=== PATIENT | female | born 1950 | race Caucasian/White ===

== ENCOUNTER 2016-10-07 15:54 | Day surgery (SDC) | payer MEDICARE, OTHER ==
[~2016-10-07] VITALS: Ht 170.2 cm; Wt 86.0 kg
[2016-10-07] VITALS (14 sets, daily range): BP systolic 101–132; BP diastolic 50–69; PULSE 68–86; RESP 12–18; Ht 170.2 cm; Wt 86.0 kg
[2016-10-07] MEDS ORDERED: LEVO100T87 PO (16:54)
[2016-10-07] MEDS ORDERED: IBUP800T25 PO (16:54)
[2016-10-07] MEDS ORDERED: AMLO-147 PO (16:54)
[2016-10-07] MEDS ORDERED: ROPIVACAINE 0.5 % 30 ML VIAL ONE (17:58)
[2016-10-07] MEDS ORDERED: MIDAZOLAM 1 MG/ML 2 ML INJ ONE (17:58)
--- NOTE | 2016-10-07 18:15 | HPN ---
Date/Time of Note Date/Time of Note DATE: 10/07/16 TIME: 18:15 Interval H&P Admission Note Pt. seen H&P reviewed: No system changes ANGELIQUE JONES MD October 07, 2016 18:15
[2016-10-07] MEDS ORDERED: ROCURONIUM 50 MG INJ ONE (18:30)
[2016-10-07] MEDS ORDERED: PROPOFOL 20 ML ONE (18:30)
[2016-10-07] MEDS ORDERED: morphine 10 MG INJ IV PRN (18:30)
[2016-10-07] MEDS ORDERED: FENTAnyl 50 MCG/ML VIAL ONE (18:30)
[2016-10-07] MEDS ORDERED: morphine 2 MG INJ IV PRN (18:30)
[2016-10-07] MEDS ORDERED: PHENYLephrine (100 MCG/ML) 5ML SYG ONE (18:42)
[2016-10-07] MEDS ORDERED: EPHEDrine SULFATE 50 MG/5 ML SYG ONE (18:47)
[2016-10-07] MEDS ORDERED: CEFAZOLIN 1 GM INJ ONE (18:48)
[2016-10-07] MEDS ORDERED: LIDOCAINE 2% (SDV) 5 ML INJ ONE (18:48)
[2016-10-07] MEDS ORDERED: ACETAMINOPHEN 1000MG/100ML IV 100 ML ONE (18:50)
[2016-10-07] MEDS ORDERED: DEXAMETHASONE 4 MG/ML 1 ML INJ ONE (19:14)
[2016-10-07] MEDS ORDERED: ONDANSETRON 4 MG INJ ONE ×2 (19:14→21:28)
[2016-10-07] MEDS ORDERED: POLYMYXIN/BACITRACIN 1L IRRIG IRR ONE (19:16)
[2016-10-07] MEDS ORDERED: HYDROmorphONE 2 MG/ML SYG ONE (20:28)
[2016-10-07] MEDS ORDERED: BACITRACIN/POLYMYXIN 28.35 GM OINT TOP ONE (21:16)
[2016-10-07] MEDS ORDERED: BUPIVACAINE 0.5% (SDV) 30 ML INJ ONE (21:16)
[2016-10-07] MEDS ORDERED: NEOSTIGMINE 3 MG/3 ML SYRINGE ONE (21:34)
[2016-10-07] MEDS ORDERED: GLYCOPYRROLATE 0.4 MG INJ ONE (21:34)
[2016-10-07] MEDS ORDERED: hydrALAzine 20 MG INJ IV PRN (22:30)
[2016-10-07] MEDS ORDERED: PROCHLORPERAZINE 10 MG INJ IV PRN (22:30)
[2016-10-07] MEDS ORDERED: oxyCODONE 5 MG TAB PO PRN ×2 (22:30)
[2016-10-07] MEDS ORDERED: DIPHENHYDRAMINE 50 MG INJ IV PRN (22:30)
[2016-10-07] MEDS ORDERED: METOCLOPRAMIDE 10 MG INJ IV PRN (22:30)
[2016-10-07] MEDS ORDERED: HYDROmorphONE (0.2 MG/ML) 10ML SYG IV PRN (22:30)
[2016-10-07] MEDS ORDERED: MEPERIDINE 25 MG INJ IV PRN (22:30)
[2016-10-07] MEDS ORDERED: FENTAnyl 50 MCG/ML VIAL IV PRN (22:30)
[2016-10-07] MEDS ORDERED: LABETALOL HCL 20MG INJ IV PRN (22:30)
--- NOTE | 2016-10-07 22:49 | OPR ---
Date/Time of Note Date/Time of Note DATE: 10/07/16 TIME: 22:27 Operative Report Procedure Date: October 07, 2016 Preoperative Diagnosis 1. right ankle Maisonneuve fracture dislocation 2. Right ankle syndesmotic disruption 3. Right ankle medial malleolus fracture Postoperative Diagnosis 1. right ankle Maisonneuve fracture dislocation 2. Right ankle syndesmotic disruption 3. Right ankle posterior and medial malleolus fracture 4. Right ankle anterior inferior tibiofibular ligament rupture 5. right ankle deep and superficial deltoid ligament rupture. Operation Performed 1. right ankle arthroscopy with extensive debridement 2. Right ankle arthroscopy with loose body removal 3. Right ankle open reduction internal fixation of Maisonneuve/syndesmotic dislocation 4. Right ankle excision of medial malleolus avulsion fracture 5. Right ankle anterior inferior tibiofibular ligament repair 6. Right ankle deep and superficial deltoid repair Surgeon: ANGELIQUE JONES MD Anesthesia: general, other (Popliteal block with local saphenous block) Anesthesiologist: JOSHUA ROMERO MD Tourniquet Time: 90 minutes at 250 mmHg Estimated Blood Loss: 0 - 10 ml's Complications: None Pt Condition Post Procedure: stable Disposition: PACU Indications Patient is a 66-year-old female who sustained a Maisonneuve fracture dislocation with a medial malleolus fracture. Given the significant widening of the medial clear space and likely deltoid injury patient was indicated for surgery. Procedure Description Patient was met in the preoperative holding area and and the correct operative extremity was confirmed and marked with the patient and confirming consent. Patient was then given preoperative regional anesthesia and then brought back in the operative theater and given preoperative antibiotics. Patient was then positioned in the typical ankle arthroscopy position with the leg in the thigh canales with a nonsterile tourniquet placed on the operative extremity and all bony prominences were well-padded. Patient was then prepped and draped in the normal sterile fashion and a timeout was taken. All parties in the room agreed as the correct patient, extremity and procedure. The superficial peroneal nerve had been marked out prior to surgery and the ankle was then distracted to approximately 20 pounds of force. Typical anterior medial, anterior lateral and posterior lateral portals were made with care to avoid any injury to the neurovascular structures. Arthroscope was then brought into the ankle and extensive hemorrhagic synovitis was seen in the ankle joint. The shaver was brought into the ankle joint and the scar tissue was debrided from the medial lateral and posterior gutter. It was found that there was evidence of chondromalacia on the talar dome. There is also found to be a posterior malleolus fracture that several loose bodies were removed from the posterior gutter that had emanated from the posterior malleolus fracture. These loose bodies measure approximately 1.3 cm in total. The anterior inferior tibiofibular ligament was identified and noted to be ruptured on the anterior lateral aspect of the ankle and the medial malleolus fracture fragment was identified and the deep and superficial deltoid were noticed to be ruptured. After extensive debridement of the ankle joint the ankle joint was irrigated thoroughly and the wounds were closed with 4-0 black nylon in a vertical mattress fashion. The ankle was taken out of the distractor and then reprepped and draped out of the thigh canales and all gloves and instruments were changed. Esmarch was brought to 250 mmHg and incision was made over the lateral malleolus. The anterior inferior tibiofibular ligament rupture was identified at this area. The syndesmotic disruption is identified as well and a 2 hole Arthrex titanium plate was placed at the syndesmosis approximately 1.5 cm from the ankle joint. Initially a 3.5 centimeter screw was placed across all 4 cortices while the ankle joint was held in reduction with a large [place] clamp. An Arthrex titanium tightrope was then placed across the proximal hole across all 4 cortices. At this point the ankle joint to be well reduced in the AP lateral and oblique position however there is extensive talar tilt seen on the medial side which was due to the deltoid rupture. This wound was irrigated thoroughly and the AITFL was then repaired with a 2-0 Vicryl. The lateral wound was then irrigated thoroughly and closed in layers with 2-0 Vicryl followed by 3-0 Monocryl and 3-0 nylon in a vertical running mattress fashion. Attention was then turned to the medial aspect of the ankle and incision was brought down over the medial malleolus. The hematoma was identified at the medial malleolus fracture site however given the small size of the fracture fragment it was determined that it would be best to remove this fracture fragment and excise it. The superficial and deep deltoid were identified to be torn at the midportion and the wound was irrigated thoroughly and then to 2.4 x 8.5 mm Arthrex mini bio composite suture tacks were then placed into the medial malleolus and then using the attached 2-0 FiberWire the deep and superficial deltoid was repaired. The ankle was then shown to have improved symmetry with improvement in the talar tilt on AP lateral and oblique x-rays. The wound irrigated thoroughly and closed in layers with 2-0 Vicryl followed by 3-0 Monocryl and 3-0 nylon in a running vertical mattress fashion. The wounds were then dressed with Xeroform, triple antibiotic ointment and 5 ABDs 5 Webrils and placed in a well-padded bulky short leg splint that was well- padded at all bone prominences. All sponge and needle counts were correct. Patient was in the PACU in stable condition. Patient had warm toes and capillary refill is brisk. We will patient to be nonweightbearing for at least the next 8 weeks. ANGELIQUE JONES MD October 07, 2016 22:39
[2016-10-07] MEDS ORDERED: CEFAZOLIN 1 GM INJ IM ONE (23:30)
[2016-10-07] MEDS ORDERED: OXYCODONE/ACETAMINOPHEN (10/325) TAB PO PRN (23:30)
[2016-10-08] VITALS (10 sets, daily range): BP systolic 104–120; BP diastolic 56–59; PULSE 69–83; RESP 14–18
--- NOTE | 2016-10-08 00:27 | HP ---
Date/Time of Note Date/Time of Note DATE: 10/08/16 TIME: 00:26 Assessment/Plan VTE Prophylaxis VTE Prophylaxis Intervention: SCD's (On the left lower extremity, right lower extremity has surgical cast/boot on.) Lines/Catheters IV C[facility]ter Type [facility]from [facility]): Peripheral IV Assessment/Plan Chief Complaint/Hosp Course This is a 66-year-old female being admitted to the [facility] for: #1 hypoxia: Likely secondary to anesthesia medications and narcotics that she got during and after surgery. Patient does not appear in any respiratory distress. She is maintaining good oxygenation of 97-98% on 2 L of nasal cannula. Heart rate is fluctuating between 60s to mid 70s. She denies any pleuritic pain. At this time I feel that a PE is less likely. I feel like this most likely is secondary to her anesthesia medications and pain medications. At the current time we will continue to monitor the patient with continuous pulse oximetry. Will DC her IV narcotic medications as well as PACU medications. If her clinical condition does change/worsen will consider a CTA of the chest, though again at this time I do not feel that her current clinical picture reflects that of her having a PE. Will wean supplemental oxygen in the a.m. and see how the patient's oxygen tolerates this. Will order chest x-ray in the morning. Encourage incentive spirometry. #2 right ankle ORIF: Patient is postop day 0. Continue current management as per her surgeon. #3 hypothyroidism: Continue levothyroxine #4 hypertension: Norvasc #5 DVT and GI prophylaxis: SCDs, acid marina Problems: HPI/ROS Admit Date/Time Admit Date/Time 10/08/16 Hx of Present Illness Chief complaint: Somnolence This is a 66-year-old female status post right ankle ORIF who is being admitted to the inpatient unit secondary to somnolence and hypoxia. Patient is status post right ankle ORIF and did well in the recovery room the patient was seen to be somnolent. She is easily arousable. The nurses did note that the patient did desat down to 86% on room air. Patient denied any chest pain or shortness of breath. Her respirations are noted to be around 7-8. She was not tachycardic. Her surgeon Dr. Sosa, was concerned regarding the patient's desat and he wanted to admit the patient overnight for observation. At the current time and examination the patient appears to be sleeping very comfortably. She is easily arousable. Her respirations are around 8-10 bpm. However she is satting 97% on 2 L nasal cannula. Otherwise her vital signs are stable and she is not tachycardic. She denies any chest pain or shortness of breath on deep inspiration. Allergies: NKDA medications: See MAR ROS Const: Negative for fever, chills, weight gain or weight loss, fatigue, or diaphoresis Eyes : No pain discharge or redness or change in visual acuity ENT: No pain, sore throat, congestion, congestion, dysphagia or discharge Respiratory: No shortness of breath, cough, sputum, wheezing, or pleuritic pain Cardiovascular: No chest pain, palpitation, PND, or edema GI : no change in appetite, abdominal pain, nausea, vomiting, diarrhea, constipation, or change in the color his stool Genitourinary: No dysuria, hematuria, flank pain , discharge or CVA tenderness Musculoskeletal: Mild pain at surgery site of the ankle. Skin: No rash, bruising or hives Neuro: No headache, dizziness, syncope, seizure, focal weakness Endocrine: No polyuria, polydipsia, temperature intolerance Psych: No hallucination, depression, anxiety or suicidal ideation PMH/Family/Social Past Medical History Hypertension, hypothyroidism Past Surgical History Right ankle ORIF 2, bilateral breast lumpectomy Family History Significant Family History: no pertinent family hx Social History Alcohol Use: none Smoking Status: Never smoker Drug Use: none Exam/Review of Systems Vital Signs Vitals Vital Signs Date Time Temp Pulse Resp B/P Pulse Ox O2 Delivery O2 Flow Rate FiO2 10/07/16 22:59 99.3 70 14 114/52 92 Room Air 10/07/16 22:39 2.0 Intake and Output 10/07/16 10/07/16 10/08/16 15:00 23:00 07:00 Intake Total 59297 ml Output Total 10 ml Balance 73879 ml Exam Exam General: Patient is sleeping comfortably in bed, she is easily arousable and answers questions appropriately. She appears comfortable HEENT: Atraumatic, normocephalic. The pupils are equal, round and reactive. Extraocular motor are intact Neck: Supple with full range of motion. No rigidity or meningismus Chest: Nontender Lungs: Clear to auscultation bilaterally no crackles rales or wheezing, no signs of respiratory distress or increased work of breathing. Heart: Normal S1-S2, Regular rhythm and rate. Abdomen: Soft , nontender, nondistended , bowel sounds are present. No guarding no rebound tenderness , No masses or organomegaly. No costovertebral temporal angle mass Extremities: Right lower extremity is in a cast status post surgery. Neurologic: Patient is somnolent however she is easily arousable. She answers questions appropriately. She is alert and oriented 3. Medications Medications Current Medications Oxycodone/ Acetaminophen (Percocet (5/ 325)) 2 tab Q4H PRN PO PAIN LEVEL 4-6; Start 10/07/16 at 18:30 Morphine Sulfate (morphine) 5 mg Q4H PRN IV PAIN; Start 10/07/16 at 18:30 Oxycodone HCl (Roxicodone) 5 mg ONCE PRN PO PAIN LEVEL 1-5; Start 10/07/16 at 22:30; Stop 10/08/16 at 02:30 Oxycodone HCl (Roxicodone) 10 mg ONCE PRN PO PAIN LEVEL 6-10; Start 10/07/16 at 22:30; Stop 10/08/16 at 02:30 Oxycodone/ Acetaminophen 1 tab 1 tab Q4H PRN PO PAIN; Start 10/07/16 at 23:30 Cefazolin Sodium (Ancef 1 Gm/50 ml (Pmx)) 50 ml @ 100 mls/hr Q8 IVPB ; Start at 22:00; Status UNV Amlodipine Besylate (Norvasc) 10 mg DAILY PO ; Start 10/08/16 at 09:00; Status UNV CRUZITO DUPREE October 08, 2016 00:27
[2016-10-08] MEDS ORDERED: NACL 0.9% 3 ML SYG IV SCH (00:30)
[2016-10-08 05:14] LABS: ADD SCAN DIFF NO
[2016-10-08 05:23] LABS: ABNORMAL IP MESSAGE 1; HEMOGLOBIN 12.4 g/dl (12.0-16.0); LYMPHOCYTES # 0.6 10^3/ul (0.8-2.9); LYMPHOCYTES % 8.9 % (15.0-51.0); MEAN CORPUSCULAR HEMOGLOBIN 31.4 pg (29.0-33.0); MEAN CORPUSCULAR HGB CONC 32.6 g/dl (32.0-37.0); MEAN CORPUSCULAR VOLUME 96.2 fl (82.0-101.0); MONOCYTE # 0.1 10^3/ul (0.3-0.9); MONOCYTES % 1.4 % (0.0-11.0); NEUTROPHIL # 5.7 10^3/ul (1.6-7.5); NEUTROPHILS % 89.4 % (39.0-77.0); PLATELET COUNT 256 10^3/UL (140-415); RED BLOOD COUNT 3.95 10^6/ul (4.20-5.40); RED CELL DISTRIBUTION WIDTH 10.5 % (11.5-14.5); WHITE BLOOD COUNT 6.4 10^3/ul (4.8-10.8)
[2016-10-08 05:34] LABS: CALCIUM 8.2 mg/dl (8.4-10.2); CREATININE 0.78 mg/dl (0.44-1.00); POTASSIUM 4.8 mmol/L (3.5-5.1)
[2016-10-08] MEDS: CEFAZOLIN 1 GM/50 ML (PMX) 50 ML IVPB SCH ×2 (05:35→14:44)
[2016-10-08] MEDS: OXYCODONE/ACETAMINOPHEN (5/325) TAB PO PRN ×3 (05:38→14:45)
[2016-10-08] MEDS ORDERED: LEVOTHYROXINE 100 MCG TAB PO SCH (07:00)
--- NOTE | 2016-10-08 07:58 | RADRPT ---
PROCEDURE: XA right ankle CLINICAL INDICATION: ORIF TECHNIQUE: 8 images were obtained intraoperatively during an ORIF procedure. COMPARISON: None available FINDINGS: 8 images were obtained intraoperatively for localization during an ORIF procedure. A short compressi on plate was placed lateral to the distal fibula and a syndesmotic screw was placed. The procedure was performed by Dr. Sosa. Images were obtained for localization intraoperatively. 58.9 seconds of fluoroscopy time was utilized for the procedure. IMPRESSION: 8 Xray images obtained intraoperatively for localization during a right ankle ORIF procedure. Physician Krys Date Time Electronically viewed and signed by Physician Krys on 10/08/2016 07:58 /
[2016-10-08] MEDS ORDERED: AMLODIPINE 10 MG TAB PO SCH (09:00)
--- NOTE | 2016-10-08 10:04 | RADRPT ---
PROCEDURE: XR Chest. CLINICAL INDICATION: Hypoxia TECHNIQUE: Chest AP portable COMPARISON: None available FINDINGS: The mediastinal structures are unremarkable. There is calcification of the thoracic aorta (consiste nt with atherosclerosis). The heart is normal in size and configuration. The pulmonary vascularity is normal. The lung almeida are unremarkable. No consolidation is identified. The pleural spaces are unremarkable. The osseous structures are unremarkable. IMPRESSION: Calcification of the thoracic aorta (consistent with atherosclerosis). No evidence for active cardiopulmonary disease. RPTAT: HGDB .Olegario Balderas MD, Date Time Electronically viewed and signed by .Olegario Balderas MD, MD on 10/08/2016 10:03 .B/
--- NOTE | 2016-10-08 10:46 | PN ---
Date/Time of Note Date/Time of Note DATE: 10/08/16 TIME: 10:34 Assessment/Plan VTE Prophylaxis VTE Prophylaxis Intervention: SCD's Lines/Catheters IV Catheter Type (from Nrs): Peripheral IV Urinary Cath still in place: No Assessment/Plan Chief Complaint/Hosp Course Assessment 1. Acute ankle fracture status post repair by Dr. Sosa 2. Postop hypoxemia likely secondary to alveolar hypoventilation from oversedation 3. History of hypothyroidism Plan 1. Continue pain control 2. Orthopedic recommendations 3. Physical therapy per Ortho 4. May benefit from acute rehab eval Problems: Subjective 24 Hr Interval Summary Free Text/Dictation Patient underwent surgical repair of ankle fracture yesterday still has significant pain In her ankle feels somewhat disoriented this morning Exam/Review of Systems Vital Signs Vitals Vital Signs Date Time Temp Pulse Resp B/P Pulse Ox O2 Delivery O2 Flow Rate FiO2 10/08/16 07:50 97.4 75 14 114/59 95 10/08/16 07:39 Nasal Cannula 10/08/16 05:30 2.0 Intake and Output 10/07/16 10/07/16 10/08/16 15:00 23:00 07:00 Intake Total 98399 ml 550 ml Output Total 10 ml Balance 67635 ml 550 ml Exam GENERAL: Well-nourished well-developed lady comfortable at rest VITAL SIGNS: per chart NECK: Supple. No JVD or lymphadenopathy. CARDIAC EXAM: S1, S2. No added sounds or murmurs. CHEST: clear bilaterally, No added sounds, rales or wheezes ABDOMEN: Soft, nontender. No guarding or rebound. EXTREMITIES: No cyanosis, clubbing right ankle in cast NEUROLOGIC: Generalized weakness. No focal deficits. Results Result Diagram: 10/08/16 0450 10/08/16 0450 Results 24 hrs Laboratory Tests Test 10/08/16 04:50 White Blood Count 6.4 Red Blood Count 3.95 L Hemoglobin 12.4 Hematocrit 38.0 Mean Corpuscular Volume 96.2 Mean Corpuscular Hemoglobin 31.4 Mean Corpuscular Hemoglobin Concent 32.6 Red Cell Distribution Width 10.5 L Platelet Count 256 Mean Platelet Volume 11.0 H Neutrophils % 89.4 H Lymphocytes % 8.9 L Monocytes % 1.4 Eosinophils % 0.0 Basophils % 0.0 Nucleated Red Blood Cells % 0.0 Neutrophils # 5.7 Lymphocytes # 0.6 L Monocytes # 0.1 L Eosinophils # 0.0 Basophils # 0.0 Nucleated Red Blood Cells # 0.0 Sodium Level 136 Potassium Level 4.8 Chloride Level 105 Carbon Dioxide Level 25 Anion Gap 11 Blood Urea Nitrogen 17 Creatinine 0.78 Glucose Level 150 Calcium Level 8.2 L Medications Medications Current Medications Oxycodone/ Acetaminophen (Percocet (5/ 325)) 2 tab Q4H PRN PO PAIN LEVEL 4-6 Last administered on 10/08/16 05:38; Admin Dose 2 TAB; Start 10/07/16 at 18:30 Oxycodone/ Acetaminophen 1 tab 1 tab Q4H PRN PO PAIN; Start 10/07/16 at 23:30 Cefazolin Sodium (Ancef 1 Gm/50 ml (Pmx)) 50 ml @ 100 mls/hr Q8 IVPB Last administered on 10/08/16 05:35; Admin Dose 100 MLS/HR; Start 10/08/16 at 06:00 Amlodipine Besylate (Norvasc) 10 mg DAILY PO Last administered on 10/08/16 08: 29; Admin Dose 10 MG; Start 10/08/16 at 09:00 ROBIN STOVALL MD, [facility] October 08, 2016 10:46
--- NOTE | 2016-10-08 16:39 | PN ---
Date/Time of Note Date/Time of Note DATE: 10/08/16 TIME: 16:37 Assessment/Plan Lines/Catheters IV Catheter Type (from Nrsg): Peripheral IV Cabrera in Place (from Nrsg): No Assessment/Plan Assessment/Plan POD#1 s/p R ankle arthroscopy with ORIF of Maissounve fracture with AITFL and Deltoid repair - NWB to the RLE - Admitted to Hospitalist service post op for desat - SCDs, teds, ASA for dvt prophx - dc home when cleared by hospitalist Jennifer Jones MD Subjective 24 Hr Interval Summary Doing well pain controlled. Exam/Review of Systems Vital Signs Vitals Vital Signs Date Time Temp Pulse Resp B/P Pulse Ox O2 Delivery O2 Flow Rate FiO2 10/08/16 07:50 97.4 75 14 114/59 95 10/08/16 07:39 Nasal Cannula 10/08/16 05:30 2.0 Intake and Output 10/07/16 10/07/16 10/08/16 15:00 23:00 07:00 Intake Total 61866 ml 550 ml Output Total 10 ml Balance 42271 ml 550 ml Exam Constitutional: alert, oriented, well developed Musculoskeletal: other (rle/ splint intact, toes wiggle, silt to the exposed toes, cr brisk) Results Result Diagram: 10/08/16 0450 10/08/16 0450 ANGELIQUE JONES MD October 08, 2016 16:39
== END 2016-10-08 17:20 | disposition home or self-care (01) ==
LOC: SDS 15:54 → MS1 10-08 00:45 → SDS 10-08 17:20
PROVIDERS: ATTEND Orthopaedic Surgery
DX: S82.861D Displaced Maisonneuve's fracture of right leg, subsequent encounter for closed fracture with routine healing (principal); X58.XXXD Exposure to other specified factors, subsequent encounter; I10 Essential (primary) hypertension; E03.9 Hypothyroidism, unspecified
CPT/HCPCS: 27766; 71010; 73610; 80048; 82306; 85025; 97163; G0378; J0131; J0690; J1100; J1170; J2250; J2370; J2405; J2710; J2795; J3010

== ENCOUNTER 2016-10-10 11:54 | Inpatient (IN) | payer MEDICARE, OTHER ==
[~2016-10-10] VITALS: Ht 170.2 cm; Wt 92.7 kg
[~2016-10-10 11:54] MED LIST: AMLO-147 PO; IBUP800T25 PO; LEVO100T87 PO
[2016-10-10] MEDS ORDERED: SOD CHLORIDE 0.9% 1,000 ML IV STA ×2 (12:00→12:11)
[2016-10-10] MEDS ORDERED: IBUP400T22 PO (12:46)
[2016-10-10] MEDS ORDERED: OXYC-209 PO (12:47)
[2016-10-10 13:01] LABS: ADD SCAN DIFF NO
[2016-10-10 13:02] LABS: BASOPHILS % 0.3 % (0.0-2.0); EOSINOPHILS # 0.1 10^3/ul (0.0-0.5); EOSINOPHILS % 0.9 % (0.0-7.0); HEMATOCRIT 36.8 % (37.0-47.0); LYMPHOCYTES % 31.8 % (15.0-51.0); MEAN CORPUSCULAR HEMOGLOBIN 31.8 pg (29.0-33.0); MEAN CORPUSCULAR HGB CONC 32.6 g/dl (32.0-37.0); MEAN CORPUSCULAR VOLUME 97.6 fl (82.0-101.0); MEAN PLATELET VOLUME 10.6 fl (7.4-10.4); MONOCYTE # 0.5 10^3/ul (0.3-0.9); MONOCYTES % 7.3 % (0.0-11.0); NEUTROPHIL # 3.8 10^3/ul (1.6-7.5); NEUTROPHILS % 59.5 % (39.0-77.0); PLATELET COUNT 252 10^3/UL (140-415); RED BLOOD COUNT 3.77 10^6/ul (4.20-5.40); RED CELL DISTRIBUTION WIDTH 10.9 % (11.5-14.5); WHITE BLOOD COUNT 6.3 10^3/ul (4.8-10.8)
--- NOTE | 2016-10-10 13:23 | ERA ---
ER Documentation Chief Complaint Date/Time DATE: 10/10/16 TIME: 13:20 Chief Complaint BIBA FOR NON RADIATING CHEST PAIN,SOB HPI 66-year-old woman brought in by EMS from home for chest discomfort to the anterior chest which has been nonradiating and nonexertional associated with shallow breathing and shortness of breath. Patient recently underwent right ankle ORIF and had to be admitted for excessive somnolence and hypoxia. 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 She denies cough, no fevers or chills, no dysuria, no abdominal pain, no headache or blurry vision. Patient was transported here by EMS without further complications. ROS All systems reviewed and are negative except as per history of present illness. Medications Home Meds Reported Medications Oxycodone HCl/Acetaminophen (Percocet 10-325 mg Tablet) 1 Each Tablet, 1 EACH PO Q4 Y for PAIN, TAB 10/10/16 Ibuprofen* (Motrin*) 400 Mg Tab, 400 MG PO Q6H Y for PAIN, TAB 10/10/16 Levothyroxine Sodium* (Levothyroxine Sodium*) 100 Mcg Tablet, 100 MCG PO BEFORE BREAKFAST, #30 TAB 10/07/16 Amlodipine Besylate* (Amlodipine Besylate*) 10 Mg Tablet, 10 MG PO DAILY, #30 TAB 10/07/16 Discontinued Reported Medications Ibuprofen* (Ibuprofen*) 800 Mg Tab, 800 MG PO TID for PAIN AND/OR INFLAMMATION, TAB 10/07/16 Allergies Allergies: Coded Allergies: No Known Allergy (Unverified , 10/10/16) PMhx/Soc Hypothyroidism, hypertension, recent right ORIF History of Surgery: Yes (CHOLECYSTECTOMY,KATHERINE LUMPECTOMY ,RT ANKLE SURGERY) Anesthesia Reaction: No Hx Neurological Disorder: No Hx Respiratory Disorders: No Hx Cardiac Disorders: Yes (HTN) Hx Psychiatric Problems: No Hx Miscellaneous Medical Probl: Yes (see PT note) Hx Alcohol Use: No Hx Substance Use: No Hx Tobacco Use: No Smoking Status: Never smoker FmHx Family History: No diabetes Physical Exam Vitals Vital Signs Date Time Temp Pulse Resp B/P Pulse Ox O2 Delivery O2 Flow Rate FiO2 10/10/16 15:02 74 17 141/62 100 Room Air 10/10/16 13:18 Nasal Cannula 2 10/10/16 13:15 70 16 124/63 97 Nasal Cannula 10/10/16 12:05 98.9 82 18 139/75 98 Physical Exam GENERAL: Well-developed, well-nourished, well-hydrated, in no apparent distress , looks nontoxic in appearance HEENT: Moist mucous membranes, pink conjunctiva, no cervical spine tenderness or step-off deformities, no goiter, no jaundice or icterus, extraocular movements intact without pain. No submandibular induration, and no pharyngeal erythema NEURO: Alert and oriented 3, cranial nerves II through XII intact bilaterally, pupils equal round reactive to light, no focal deficits or facial asymmetry, sensation intact distally Strength 5/5 in upper and lower extremities bilaterally CARDIAC: Regular rate and rhythm, no murmurs rubs or gallops LUNGS: Clear bilaterally no wheezing crackles or stridor ABDOMEN: Soft nontender, no guarding, no rigidity, no rebound, no psoas sign no obturator sign. Normoactive bowel sounds SKIN: Warm and dry to touch, no abrasions, contusions, or hematomas, no lacerations, no ecchymosis, no target lesions, and without ulcers EXTREMITIES: No clubbing cyanosis or edema, right lower extremity is placed in a long-leg immobilizer boot, distal pulses equal bilateral PSYCH: Normal affect without agitation or irritability Result Diagram: 10/10/16 1230 10/10/16 1230 Results 24 hrs Laboratory Tests Test 10/10/16 12:30 10/10/16 14:55 White Blood Count 6.310^3/ul Red Blood Count 3.7710^6/ul Hemoglobin 12.0g/dl Hematocrit 36.8% Mean Corpuscular Volume 97.6fl Mean Corpuscular Hemoglobin 31.8pg Mean Corpuscular Hemoglobin Concent 32.6g/dl Red Cell Distribution Width 10.9% Platelet Count 86843^3/UL Mean Platelet Volume 10.6fl Neutrophils % 59.5% Lymphocytes % 31.8% Monocytes % 7.3% Eosinophils % 0.9% Basophils % 0.3% Nucleated Red Blood Cells % 0.0/100WBC Neutrophils # 3.810^3/ul Lymphocytes # 2.010^3/ul Monocytes # 0.510^3/ul Eosinophils # 0.110^3/ul Basophils # 0.010^3/ul Nucleated Red Blood Cells # 0.010^3/ul Sodium Level 137mmol/L Potassium Level 4.1mmol/L Chloride Level 103mmol/L Carbon Dioxide Level 31mmol/L Anion Gap 7 Blood Urea Nitrogen 17mg/dl Creatinine 0.89mg/dl Glucose Level 101mg/dl Calcium Level 8.5mg/dl Total Bilirubin 0.3mg/dl Direct Bilirubin 0.00mg/dl Indirect Bilirubin 0.3mg/dl Aspartate Amino Transf (AST/SGOT) 210IU/L Alanine Aminotransferase (ALT/SGPT) 237IU/L Alkaline Phosphatase 124IU/L Troponin I < 0.012ng/ml Total Protein 5.9g/dl Albumin 3.0g/dl Globulin 2.90g/dl Albumin/Globulin Ratio 1.03 Lipase 64U/L Urine Color LT. YELLOW Urine Clarity CLEAR Urine pH 6.0 Urine Specific [place] 1.010 Urine Ketones NEGATIVE Urine Nitrite NEGATIVE Urine Bilirubin NEGATIVE Urine Urobilinogen 0.2 E.U./dL Urine Leukocyte Esterase NEGATIVE Urine Microscopic RBC 0-2/HPF Urine Microscopic WBC NONE SEEN/HPF Urine Epithelial Cells FEW Urine Hemoglobin TRACE Urine Glucose NEGATIVE% Urine Total Protein NEGATIVE Current Medications Medications (Trade) Dose Ordered Sig/Dianne Route PRN Reason Start Time Stop Time Status Last Admin Dose Admin Sodium Chloride 1,000 ml @ 1,000 mls/hr Q1H STAT IV 10/10/16 12:00 10/10/16 12:06 DC Sodium Chloride (NS) 1,000 ml @ 1,000 mls/hr Q1H STAT IV 10/10/16 12:11 10/10/16 13:10 DC 10/10/16 12:26 IV Flush 10 ml 10 ml STK-MED ONCE .ROUTE 10/10/16 13:30 10/10/16 13:31 DC Sodium Chloride 100 ml @ ud STK-MED ONCE .ROUTE 10/10/16 13:30 10/10/16 13:31 DC Iohexol (Omnipaque) 100 ml @ ud STK-MED ONCE .ROUTE 10/10/16 13:30 10/10/16 13:31 DC Iohexol (Omnipaque 350mg/ ml) 50 ml STK-MED ONCE .ROUTE 10/10/16 13:30 10/10/16 13:31 DC Aspirin (Aspirin) 324 mg ONCE ONCE PO 10/10/16 14:30 10/10/16 14:31 DC Heparin Sodium (Porcine) 5000 unit 5,000 unit ONCE STAT IV 10/10/16 14:14 10/10/16 14:20 DC Heparin Sodium (Porcine) (Heparin 38689 Units/250 ml) 250 ml @ 0 mls/hr ONCE STAT IV 10/10/16 14:14 10/10/16 14:20 DC Procedures/MDM IV line was established patient was placed on monitor and storage bin tender rhythm strip revealed a sinus rhythm at about 70 bpm with upright P and T waves. Patient was afebrile. Oxygen saturation on room air was 98% and normal. EKG performed, read by me: 73 bpm, normal sinus rhythm, normal axis, no acute ST segment changes, narrow QRS complex, with good R-wave progression in precordial leads. I administered 2 L normal saline intravenously. CT angiogram of the chest was performed revealing bilateral subsegmental pulmonary emboli and micronodules as well. Please refer to radiologist dictation for full report. I administered aspirin 324 mg p.o. for cardioprotective measures as well as heparin bolus maximum dose followed by heparin drip to treat acute symptomatic bilateral pulmonary emboli. CBC was normal, electrolytes normal, liver function tests revealed mild transaminitis, troponin was negative. Critical Care: Time: 35 minutes, this was time separate from other procedures. Treatments/Evaluations: Close monitoring and treatment of unstable vital signs, cardiorespiratory, and neurologic status, while maintaining tight balance of fluid, respiratory, and cardiac interventions. Patient will be admitted to telemetry setting for continued medical management and cardiology consultation. Departure Diagnosis: Primary Impression: Bilateral pulmonary embolism Additional Impression: Ankle fracture, right Qualified Code: S82.891B - Ankle fracture, right, open type I or II, initial encounter Condition: Serious RICKY CASTILLO MD October 10, 2016 13:23
[2016-10-10 13:26] LABS: ALANINE AMINOTRANSFERASE 237 IU/L (13-69); ALBUMIN/GLOBULIN RATIO 1.03; ALKALINE PHOSPHATASE 124 IU/L (42-121); ANION GAP 7 (8-16); ASPARTATE AMINO TRANSFERASE 210 IU/L (15-46); BILIRUBIN,INDIRECT 0.3 mg/dl (0-1.1); BILIRUBIN,TOTAL 0.3 mg/dl (0.2-1.3); BLOOD UREA NITROGEN 17 mg/dl (7-20); CALCIUM 8.5 mg/dl (8.4-10.2); CARBON DIOXIDE 31 mmol/L (21-31); CHLORIDE 103 mmol/L (97-110); CREATININE 0.89 mg/dl (0.44-1.00); GLUCOSE 101 mg/dl (70-220); POTASSIUM 4.1 mmol/L (3.5-5.1); SODIUM 137 mmol/L (135-144); TOTAL PROTEIN 5.9 g/dl (6.1-8.1)
[2016-10-10] MEDS ORDERED: IOHEXOL 100 ML ONE (13:30)
[2016-10-10] MEDS ORDERED: IOHEXOL 350MG/ML 50 ML BTL ONE (13:30)
[2016-10-10] MEDS ORDERED: SOD CHLORIDE 0.9% 100 ML ONE (13:30)
[2016-10-10 13:39] LABS: TROPONIN-I < 0.012 ng/ml (0.00-0.12)
--- NOTE | 2016-10-10 13:46 | RADRPT ---
PROCEDURE: CT Brain without contrast. CLINICAL INDICATION: Neurologic deficit TECHNIQUE: A CT of the brain was performed on multidetector high-resolution CT scanner utilizing a xial sections from the skull base through the vertex without contrast. One or more of the following dose reduction techniques were used: Automated exposure control, Adjustment of the mA and/or kV acc ording to patient size, and/or use of iterative reconstruction technique. DOSE: CTDI = 44 mGy and the DLP = 630 mGy-cm. COMPARISON: None available FINDINGS: No acute intracranial hemorrhage, significant mass effect or midline shift. The tipton-white different iation is grossly preserved. The ventricles are normal in size for age. No significant opacification of the visualized paranasal sinuses or mastoids. IMPRESSION: No acute intracranial findings. RPTAT: AA .Channing Ferrell MD, Date Time Electronically viewed and signed by .Channing Ferrell MD, on 10/10/2016 13:46 .T/
[2016-10-10] MEDS ORDERED: HEPARIN 25000 UNITS/250 ML 250 ML IV STA (14:14)
[2016-10-10] MEDS ORDERED: HEPARIN 1000 UNITS/ML 10 ML INJ IV STA (14:14)
--- NOTE | 2016-10-10 14:16 | RADRPT ---
PROCEDURE: CTA chest with contrast utilizing the pulmonary embolus protocol. CLINICAL INDICATION: Dyspnea. TECHNIQUE: CT angiography of the chest was performed after the uneventful intravenous administration of 120 cc of Omnipaque-350. Coronal and sagittal reformations were performed. 3-D/multiplanar reformations we re performed by the technologist and at an independent workstation. The total exam CTDI equals 49.29 , 17.54 and the total exam DLP equals 627.95 mGy-cm. One or more of the following dose reduction techniques were used: - Automated exposure control. - Adjustment of the mA and/or kV according to patient size. - Use of iterative reconstruction technique. COMPARISON: Chest x-ray dated 10/08/2016. FINDINGS: Pulmonary vasculature: There are emboli within the subsegmental branches of the right upper lobe and left lower lobe pulmon samson arteries, consistent with pulmonary emboli. The main pulmonary artery is normal in caliber and t here is no evidence of right heart strain. Lungs, pleura, airways, and thoracic inlet: There are small bilateral pleural effusions, left greater than right. There is interlobular septal t hickening at the lung bases. There are nonspecific ground-glass micronodules throughout both lungs. There is also a 4 mm solid nodule in the anterior right middle lobe. There is no pneumothorax. Th e tracheobronchial tree is patent and normal in course and caliber. Cardiovascular system and mediastinum: The heart is normal in size without pericardial thickening or effusion. There are atherosclerotic c hanges of the aorta, which is nonaneurysmal. Lymphatics: There is no axillary adenopathy. There is bilateral hilar adenopathy. There is no mediastinal adeno conner. Visualized upper abdomen: The left kidney is not identified in its normal anatomic location, and may be surgically absent. The gallbladder is surgically absent. The visualized upper abdomen is otherwise unremarkable. Musculoskeletal system: There are no concerning osseous lesions. There is mild to moderate multilevel degenerative spondylos is. IMPRESSION: 1. Positive for PE with emboli and the subsegmental branches of the right upper lobe and left lower lobe pulmonary arteries. 2. Nonspecific ground-glass micronodules scattered throughout both lungs, which may be infectious/i nflammatory in nature. Additional solid 4 mm nodule in the right middle lobe. Follow-up chest CT in 1 month is recommended. Interlobular septal thickening at both lung bases, suggestive of mild pulmo nary edema. Small bilateral effusions, left greater than right. 3. Bilateral hilar adenopathy, which is nonspecific. Attention on follow-up is recommended. 4. Nonvisualization of the left kidney in its expected location, which may be surgically absent. CRITICAL RESULTS: These findings discussed with Dr. Berrios in the ED at 1413 hours on 10/10/2016. RPTAT: GG .Luis Ritchie MD, Date Time Electronically viewed and signed by .Luis Ritchie MD, on 10/10/2016 14:15 .P/
[2016-10-10] MEDS ORDERED: ASPIRIN 81 MG TAB PO ONE (14:30)
[2016-10-10 15:38] LABS: ADD UMIC YES; URINE BILIRUBIN (Dip) NEGATIVE (NEGATIVE); URINE BLOOD (Dip) TRACE (NEGATIVE); URINE COLOR LT. YELLOW (YELLOW); URINE GLUCOSE (Dip) NEGATIVE (NEGATIVE); URINE KETONES (Dip) NEGATIVE (NEGATIVE); URINE LEUKOCYTE ESTERASE (Dip) NEGATIVE (NEGATIVE); URINE NITRITE (Dip) NEGATIVE (NEGATIVE); URINE TOTAL PROTEIN (Dip) NEGATIVE (NEGATIVE); URINE UROBILINOGEN (Dip) 0.2 E.U./dL (0.1-1.0)
[2016-10-10 15:45] LABS: URINE RBCS 0-2 /HPF (0)
--- NOTE | 2016-10-10 17:58 | HP ---
Date/Time of Note Date/Time of Note DATE: 10/10/16 TIME: 17:51 Assessment/Plan VTE Prophylaxis VTE Prophylaxis Intervention: other (Xarelto) Assessment/Plan Assessment/Plan 1. Bilateral pulmonary emboli: Start oral anticoagulation, supplemental oxygen therapy, pain control. These are provoked PE, and as such hypercoagulable workup is not indicated at this time 2. Recent ankle fracture status post repair by Dr. Sosa 3. Hypothyroidism: Continue home meds Further interventions per clinical course Prophylaxis with anticoagulation and PPI HPI/ROS Admit Date/Time Admit Date/Time October 10, 2016 Hx of Present Illness Presenting complaint: Shortness of breath History of presenting complaint: This is a 66-year-old female who was just discharged from this facility after she underwent open reduction and internal fixation of an ankle fracture. She is presenting today with chest pain or shortness of breath. Chest pain is said to be midsternal, and pleuritic in nature associated with breathing. She has no fevers or chills, she has no cough or sputum production. She has no wheezing. She has had no syncopal episodes, denies abdominal pain, nausea or vomiting. Denies black stools. ROS ROS: CONSTITUTIONAL: denies fever, chills, weight loss, weight gain HEENT: denies headaches, any vertigo, any sore throat or rhinorrhea. Eyes: No double or blurred vision or eye pain. GASTROINTESTINAL: The patient denies any nausea, vomiting, diarrhea or abdominal pain. GENITOURINARY: denies dysuria, frequency, urgency or hematuria. MUSCULOSKELETAL: also denies myalgias, arthralgias or edema. SKIN: denies rash or jaundice NEUROLOGIC: denies weakness, dizziness, focal neurological change or headache. PSYCHIATRIC: denies history of depression in the past, any suicidal ideation. substance abuse. ENDOCRINE: denies polyuria, polydipsia or hot or cold intolerance. HEMATOLOGIC: denies history of easy bruising, anemia or eczema. PMH/Family/Social Social History Smoking Status: Never smoker Exam/Review of Systems Vital Signs Vitals Vital Signs Date Time Temp Pulse Resp B/P Pulse Ox O2 Delivery O2 Flow Rate FiO2 10/10/16 15:02 74 17 141/62 100 Room Air 10/10/16 13:18 2 10/10/16 12:05 98.9 Exam Exam GENERAL: Patient is alert, oriented x 3, in no apparent distress; does not appear acutely or chronically ill. Patient is able to sit up unassisted.Patient makes good eye contact, is conversant, interactive, coherent. Patient appears calm and comfortable and is able to follow commands. HEENT: Oropharynx is clear. There is no carotid bruit, no masses. Patient's pupils are equal, round and reactive to light bilaterally. Extraocular motions are intact. There is no scleral icterus. There is no facial asymmetry. NECK: Supple. LUNGS: Clear to auscultation bilaterally with good air entry. No Wheezes or crackles. HEART: S1, S2. No murmur, gallops or rubs. Regular rate and rhythm. ABDOMEN: Soft, nontender. Normoactive bowel sounds. There are no stigmata of chronic liver disease. BACK: no costovertebral angle tenderness. GENITOURINARY: Deferred. EXTREMITIES: Right ankle in cast NEUROLOGIC: The patient has no lateralizing signs. Cranial nerves II-XII are intact. SKIN: Otherwise, unremarkable. Labs Result Diagram: 10/10/16 1230 10/10/16 1230 Procedures Procedures PROCEDURE: CTA chest with contrast utilizing the pulmonary embolus protocol. CLINICAL INDICATION: Dyspnea. TECHNIQUE: CT angiography of the chest was performed after the uneventful intravenous administration of 120 cc of Omnipaque-350. Coronal and sagittal reformations were performed. 3-D/multiplanar reformations were performed by the technologist and at an independent workstation. The total exam CTDI equals 49.29 , 17.54 and the total exam DLP equals 627.95 mGy-cm. One or more of the following dose reduction techniques were used: - Automated exposure control. - Adjustment of the mA and/or kV according to patient size. - Use of iterative reconstruction technique. COMPARISON: Chest x-ray dated 10/08/2016. FINDINGS: Pulmonary vasculature: There are emboli within the subsegmental branches of the right upper lobe and left lower lobe pulmonary arteries, consistent with pulmonary emboli. The main pulmonary artery is normal in caliber and there is no evidence of right heart strain. Lungs, pleura, airways, and thoracic inlet: There are small bilateral pleural effusions, left greater than right. There is interlobular septal thickening at the lung bases. There are nonspecific ground- glass micronodules throughout both lungs. There is also a 4 mm solid nodule in the anterior right middle lobe. There is no pneumothorax. The tracheobronchial tree is patent and normal in course and caliber. Cardiovascular system and mediastinum: The heart is normal in size without pericardial thickening or effusion. There are atherosclerotic changes of the aorta, which is nonaneurysmal. Lymphatics: There is no axillary adenopathy. There is bilateral hilar adenopathy. There is no mediastinal adenopathy. Visualized upper abdomen: The left kidney is not identified in its normal anatomic location, and may be surgically absent. The gallbladder is surgically absent. The visualized upper abdomen is otherwise unremarkable. Musculoskeletal system: There are no concerning osseous lesions. There is mild to moderate multilevel degenerative spondylosis. IMPRESSION: 1. Positive for PE with emboli and the subsegmental branches of the right upper lobe and left lower lobe pulmonary arteries. 2. Nonspecific ground-glass micronodules scattered throughout both lungs, which may be infectious/inflammatory in nature. Additional solid 4 mm nodule in the right middle lobe. Follow-up chest CT in 1 month is recommended. Interlobular septal thickening at both lung bases, suggestive of mild pulmonary edema. Small bilateral effusions, left greater than right. 3. Bilateral hilar adenopathy, which is nonspecific. Attention on follow-up is recommended. 4. Nonvisualization of the left kidney in its expected location, which may be surgically absent. CRITICAL RESULTS: These findings discussed with Dr. Castillo in the ED at 1413 hours on 10/10/2016. RPTAT: GG .Luis Ritchie MD, MD Date Time Electronically viewed and signed by .Luis Ritchie MD, MD on 10/10/2016 14:15 .P/ CC: RICKY CASTILLO MD, BOLATITO M. October 10, 2016 17:58
[2016-10-10] MEDS ORDERED: morphine 2 MG INJ IV PRN (18:30)
[2016-10-10] MEDS: ONDANSETRON 4 MG INJ IV PRN (18:55)
[2016-10-10 19:00] VITALS: Ht 170.2 cm; Wt 92.7 kg
[2016-10-10 19:30] VITALS: BP 133/65; PULSE 65; RESP 18
[2016-10-10] MEDS: RIVAROXABAN 15 MG TABLET PO SCH (20:10)
[2016-10-10 20:13] VITALS: BP 121/74; RESP 20
[2016-10-10 20:31] VITALS: PULSE 65
[2016-10-10] MEDS: OXYCODONE/ACETAMINOPHEN (10/325) TAB PO PRN (21:49)
[2016-10-10 23:15] LABS: CREATINE KINASE 48 IU/L (23-200)
[2016-10-10 23:25] LABS: CK-MB 0.28 ng/ml (0.0-2.4)
[2016-10-10 23:29] LABS: TROPONIN-I < 0.012 ng/ml (0.00-0.12)
[2016-10-11] VITALS (10 sets, daily range): BP systolic 98–120; BP diastolic 53–70; PULSE 65–77; RESP 20
[2016-10-11] MEDS: OXYCODONE/ACETAMINOPHEN (10/325) TAB PO PRN ×3 (04:45→22:41)
[2016-10-11] MEDS: PANTOPRAZOLE (EC) 40 MG TAB PO SCH (05:21)
[2016-10-11] MEDS: LEVOTHYROXINE 100 MCG TAB PO SCH (07:14)
[2016-10-11] MEDS: AMLODIPINE 10 MG TAB PO SCH (08:52)
[2016-10-11] MEDS: RIVAROXABAN 15 MG TABLET PO SCH ×2 (08:52→17:23)
[2016-10-11] MEDS: POLYETHYLENE GLYCOL 17 GM PACKET PO SCH (08:52)
[2016-10-11 10:31] LABS: ADD SCAN DIFF NO
[2016-10-11 10:33] LABS: BASOPHILS % 0.4 % (0.0-2.0); EOSINOPHILS # 0.1 10^3/ul (0.0-0.5); EOSINOPHILS % 2.3 % (0.0-7.0); HEMATOCRIT 33.4 % (37.0-47.0); HEMOGLOBIN 11.1 g/dl (12.0-16.0); LYMPHOCYTES # 2.1 10^3/ul (0.8-2.9); LYMPHOCYTES % 40.1 % (15.0-51.0); MEAN CORPUSCULAR HEMOGLOBIN 32.1 pg (29.0-33.0); MEAN CORPUSCULAR HGB CONC 33.2 g/dl (32.0-37.0); MEAN CORPUSCULAR VOLUME 96.5 fl (82.0-101.0); MEAN PLATELET VOLUME 10.6 fl (7.4-10.4); MONOCYTE # 0.4 10^3/ul (0.3-0.9); MONOCYTES % 8.2 % (0.0-11.0); NEUTROPHIL # 2.6 10^3/ul (1.6-7.5); NEUTROPHILS % 48.8 % (39.0-77.0); PLATELET COUNT 265 10^3/UL (140-415); RED BLOOD COUNT 3.46 10^6/ul (4.20-5.40); RED CELL DISTRIBUTION WIDTH 10.8 % (11.5-14.5); WHITE BLOOD COUNT 5.3 10^3/ul (4.8-10.8)
[2016-10-11 10:52] LABS: CREATINE KINASE 38 IU/L (23-200)
[2016-10-11 10:57] LABS: CALCIUM 8.6 mg/dl (8.4-10.2); CREATININE 0.82 mg/dl (0.44-1.00); MAGNESIUM 1.6 mg/dl (1.7-2.5); POTASSIUM 3.9 mmol/L (3.5-5.1)
[2016-10-11 11:09] LABS: CK-MB < 0.22 ng/ml (0.0-2.4); TROPONIN-I < 0.012 ng/ml (0.00-0.12)
[2016-10-11 11:27] LABS: THYROID STIMULATING HORMONE 1.37 MIU/L (0.465-4.680)
--- NOTE | 2016-10-11 13:06 | DS ---
DATE OF ADMISSION: 10/10/2016 DATE OF DISCHARGE: 10/11/2016 ADMITTING DIAGNOSIS: Shortness of breath, rule out pulmonary emboli. DISCHARGE DIAGNOSIS: 1. Bilateral subsegmental lower lobe pulmonary emboli. 2. History of recent right ankle fracture. 3. History of hypothyroidism. PHYSICAL EXAMINATION: Ms. Andre's condition is quite stable. The patient denies any shortness of breath. Complains of very minimal chest discomfort upon deep breathing. Denies any hemoptysis, cough, wheezing, sputum production. Complains of very minimal right ankle pain. GENERAL: Elderly woman, awake, alert, cur rently in no distress. VITAL SIGNS: Temperature is 98.7 degrees Fahrenheit, respiratory rate is 18 per minute, blood press ure 106/56, O2 sat 98%, heart rate was 72. HEENT: Supple neck. No JVD, no lymphadenopathy, midline trachea, no thyromegaly. Pharynx clear, no neck bruits. Patient has good dentition. CHEST: Clear to auscultation. S1, S2 audible, no murmur. Regular rhythm. ABDOMEN: Soft, nontender, not distended. No organomegaly. Bowel sounds audible. EXTREMITIES: No peripheral edema. Pulses 1+ bilaterally. There is a cast involving the right foot . FORMULATION CHEMIST: No focal deficits. LABORATORY DATA: White count is 5.3, hemoglobin 11.1, platelet count of 265. Sodium 134, potassium 3.9, chloride 101, bicarbonate 32, glucose 101, BUN 13, creatinine 0.82. ASSESSMENT: 1. Patient admitted for bilateral subsegmental lower lobe pulmonary emboli. Clinically, doing very well, started on Xarelto off intravenous heparin. 2. History of recent right ankle fracture, likely positive effect causing pulmonary emboli. 3. Hypothyroidism. 4. History of hypertension. Patient will follow up with her primary care physician in 2 weeks' minerva e. PLAN: The patient can be discharged home. Will continue Xarelto via protocol. Patient will need a t least 6 months of treatment. She is to continue her outpatient medications which are amlodipine a nd Synthroid. Dictated By: VANESA ALLEN/NTS Conf#: [id number] DID#: [id number]
[2016-10-11] MEDS: ONDANSETRON 4 MG INJ IV PRN (14:10)
--- NOTE | 2016-10-11 15:10 | RADRPT ---
Echocardiogram Report Patient Name: LEAH ALDRIDGE Gender: Female Date: 1950 Study Date: 11-Oct-2016 Analog Design Engineer: Matt [facility] Location: [id number] Ref. Physician: KARI NARAYAN Quality: Adequate Procedures: Transthoracic echocardiogram with complete 2D, M-Mode, and doppler examination. Indications: Shortness of breath. 2D/M Mode Doppler Measurement Value Normal Ranges Measurement Value Normal Ranges LVIDd 2D 4.4 3.5 - 5.6 cm AV Peak Tay 0.9 m/sec LVIDs 2D 3.0 2.1 - 4.1 cm AV Peak PG 3.3 mmHg LVPWd 2D 0.9 0.6 - 1.1 cm LVOT Peak Tay 0.7 m/sec IVSd 2D 0.9 0.6 - 1.1 cm LVOT Peak PG 2.2 mmHg AoR Diam 2D 3.0 2.0 - 3.7 cm MV E Peak Tay 0.6 m/sec EDV 2D 88.1 cm3 MV A Peak Tay 0.4 m/sec ESV 2D 26.8 cm3 MV E/A 1.6 LA Dimen 2D 3.2 2.3 - 4.0 cm MV Decel Time 213 msec MV Decel [place] 3 MV E/A 1.6 Findings Left Ventricle: Normal left ventricular systolic function. Normal left ventricular cavity size. Normal left ventricular wall thickness. Ejection fraction is visually estimated at 65 %. Abnormal Diastolic Function. Right Ventricle: Normal right ventricular size. Normal right ventricular systolic function. Left Atrium: The left atrium is normal in size. Right Atrium: The right atrium is normal in size. Mitral Valve: Mild mitral leaflet calcification. Trace mitral regurgitation. Aortic Valve: Normal appearance of the aortic valve. No significant aortic stenosis or insufficiency. Tricuspid Valve: Normal appearance and function of the tricuspid valve with trace physiologic regurgitation. Pulmonic Valve: Pulmonic valve not well visualized. There is trace pulmonic regurgitation. Pericardium: Normal pericardium with no significant pericardial effusion. Aorta: Normal aortic root. IVC: Dilated IVC with respiratory collapse consistent with elevated right atrial pressure. Conclusions 1.Normal left ventricular systolic function. Normal left ventricular cavity size. Normal left ventricular wall thickness. Ejection fraction is visually estimated at 65 %. Abnormal Diastolic Function. 2.Normal right ventricular size. Normal right ventricular systolic function. 3.Mild mitral leaflet calcification. Trace mitral regurgitation. 4.Normal appearance of the aortic valve. No significant aortic stenosis or insufficiency. 5.Normal appearance and function of the tricuspid valve with trace physiologic regurgitation. 6.Normal pericardium with no significant pericardial effusion. Electronically Signed By: Houston Hernandez 11-Oct-2016 15:09:25 -0700 Patient Name: LEAH ALDRIDGE Study Date: 11-Oct-2016 [id number]
[2016-10-11] MEDS ORDERED: RIVA20TA PO (17:11)
[2016-10-11] MEDS ORDERED: RIVA15TA PO (17:11)
[2016-10-12 00:38] VITALS: BP 107/62; RESP 20
[2016-10-12 01:14] VITALS: PULSE 76
[2016-10-12 04:18] VITALS: BP 101/56; RESP 18
[2016-10-12 04:27] VITALS: PULSE 72
[2016-10-12] MEDS: LEVOTHYROXINE 100 MCG TAB PO SCH (06:52)
[2016-10-12] MEDS: PANTOPRAZOLE (EC) 40 MG TAB PO SCH (06:52)
[2016-10-12 07:42] VITALS: BP 104/51; RESP 17
[2016-10-12 08:13] VITALS: PULSE 66
[2016-10-12] MEDS: AMLODIPINE 10 MG TAB PO SCH (08:42)
[2016-10-12] MEDS: RIVAROXABAN 15 MG TABLET PO SCH (08:42)
[2016-10-12] MEDS: POLYETHYLENE GLYCOL 17 GM PACKET PO SCH (08:43)
== END 2016-10-12 09:51 | disposition home or self-care (01) | DRG 301 ==
LOC: E/R 11:54 → MS4 14:35
PROVIDERS: ADMIT Family Medicine; ATTEND Family Medicine
DX: T81.718A Complication of other artery following a procedure, not elsewhere classified, initial encounter (principal); I26.99 Other pulmonary embolism without acute cor pulmonale; E03.9 Hypothyroidism, unspecified; Y83.8 Other surgical procedures as the cause of abnormal reaction of the patient, or of later complication, without mention of misadventure at the time of the procedure; Y92.530 Ambulatory surgery center as the place of occurrence of the external cause; Z98.890 Other specified postprocedural states
CPT/HCPCS: 70450; 71275; 80048; 80053; 81001; 81003; 82550; 82553; 83690; 83735; 84443; 84484; 85025; 93005; 93306; 96374; 96375; J1644; J2405; J7030; Q9967

== ENCOUNTER 2017-03-30 09:01 | Day surgery (SDC) | END 2017-03-30 15:05 | disposition home or self-care (01) | DX: T84.84XA Pain due to internal orthopedic prosthetic devices, implants and grafts, initial encounter (principal); Y83.8 Other surgical procedures as the cause of abnormal reaction of the patient, or of later complication, without mention of misadventure at the time of the procedure; Y92.89 Other specified places as the place of occurrence of the external cause; I10 Essential (primary) hypertension; E03.9 Hypothyroidism, unspecified | CPT/HCPCS: 20680; 71010; 73610; 82306; J0690; J1170; J2175; J2405; J2795 ==